=== PATIENT | female | born 1975 | race Two or more races ===

== ENCOUNTER 2022-03-21 23:19 | Observation (INO) ==
[2022-03-21] MEDS ORDERED: MORPHINE 2 MG/1 ML SYRINGE IV STA (23:56)
[2022-03-21] MEDS ORDERED: SODIUM CHLORIDE 0.9% 500 ML IV STA (23:56)
[2022-03-21] MEDS ORDERED: NITROGLYCERIN 2% OINT 1 INCH/GM PACK TOP STA (23:56)
[2022-03-21] MEDS ORDERED: ONDANSETRON 4 MG/2 ML VIAL IV STA (23:56)
[2022-03-22 00:10] LABS: Alanine Aminotransferase 11 U/L (13-56); Albumin 3.3 G/DL (3.4-5.0); Alkaline Phosphatase 97 U/L (45-117); Aspartate Amino Transferase 17 U/L (0-37); Bilirubin,Total < 0.39 MG/DL (0.20-1.00); Blood Urea Nitrogen 14 MG/DL (7-18); Carbon Dioxide 26 MMOL/L (21-32); Chloride 113 MMOL/L (98-107); Glucose 115 MG/DL (74-106); Osmolality,Calculated 284.1 MOS/KG (273-304); Potassium 3.6 MMOL/L (3.5-5.1); Sodium 142 MMOL/L (136-145); Total Protein 7.3 G/DL (6.4-8.2)
[2022-03-22 00:21] LABS: Basophils # 0.1 10*3/uL (0.0-0.2); Basophils % 0.7 % (0.0-0.8); Eosinophils # 0.4 10*3/uL (0.0-0.87); Hematocrit 33.3 VOL% (35.7-47.0); Hemoglobin 10.8 GM/DL (12.0-16.0); Immature Granulocytes % 0.6 %; Immature Granulocytes Absolute 0.05 #; Lymphocytes # 2.3 10*3/uL (1.4-4.0); Lymphocytes % 27.2 % (21.3-54.2); Mean Corpuscular HGB Conc 32.4 GM/DL (32-36); Mean Corpuscular Volume 85.4 FL (87-102); Mean Platelet Volume 9.4 FL (9.6-12.0); Monocytes # 0.4 10*3/uL (0.11-0.8); Monocytes % 4.7 % (1.7-12.7); Neutrophils % 61.8 % (38.7-73.9); Platelet Count 274 T/CUMM (130-400); Red Cell Distribution Width 13.7 % (9.3-17.3); White Blood Count 8.3 T/CUMM (4-12)
[2022-03-22] MEDS ORDERED: METHOCARBAMOL 1,000 MG/10 ML VIAL IV STA ×2 (00:25→02:25)
[2022-03-22] MEDS ORDERED: oxyCODONE/ACETAMINOPHEN 5-325 MG TABLET PO PRN (04:58)
[2022-03-22] MEDS ORDERED: ACETAMINOPHEN 325 MG TABLET PO PRN (04:58)
[2022-03-22] MEDS ORDERED: MORPHINE 2 MG/1 ML SYRINGE IV PRN (04:58)
[2022-03-22] MEDS ORDERED: ONDANSETRON 4 MG/2 ML VIAL IV PRN (04:58)
[2022-03-22] MEDS: LEVOTHYROXINE 50 MCG TABLET PO SCH (06:01)
[2022-03-22] MEDS: SODIUM CHLORIDE 0.9% 1,000 ML IV SCH ×2 (06:01→19:43)
[2022-03-22] MEDS: ENOXAPARIN 80 MG/0.8 ML SYRINGE SUBCUT SCH ×2 (06:02→18:53)
[2022-03-22] MEDS ORDERED: NON-FORMULARY MEDICATION (Omeprazole 20 mg Capsule,Delayed Release(Dr/Ec)) PO SCH (09:00)
[2022-03-22] MEDS: ATORVASTATIN 20 MG TABLET PO SCH (12:09)
[2022-03-22] MEDS: DOCUSATE SODIUM 100 MG CAPSULE PO SCH ×2 (12:09→20:59)
[2022-03-22] MEDS: NITROFURANTOIN MACRO/MONO 100 MG CAPSULE PO SCH ×2 (12:09→20:58)
[2022-03-22] MEDS: MELOXICAM 7.5 MG TABLET PO SCH (12:10)
[2022-03-22] MEDS: PANTOPRAZOLE 40 MG TABLET PO SCH (12:10)
[2022-03-22] MEDS ORDERED: HEPARIN/NACL 0.9% 2 UNITS/ML 3,000 UNIT/1,500 ML BAG IV ONE (12:11)
[2022-03-22] MEDS ORDERED: MIDAZOLAM 2 MG/2 ML VIAL ONE ×2 (12:26→12:54)
[2022-03-22] MEDS ORDERED: NITROGLYCERIN DRIP 50 MG/250 ML BOTTLE IV ONE (12:27)
[2022-03-22] MEDS ORDERED: VERAPAMIL 5 MG/2 ML VIAL ONE (12:27)
[2022-03-22] MEDS ORDERED: fentaNYL 100 MCG/2 ML VIAL ONE (12:27)
[2022-03-22] MEDS ORDERED: HEPARIN 5,000 UNIT/1 ML VIAL ONE (12:37)
[2022-03-22] MEDS ORDERED: hydrALAZINE 20 MG/1 ML VIAL IV PRN (12:48)
[2022-03-22] MEDS ORDERED: ONDANSETRON 4 MG/2 ML VIAL ONE (12:54)
[2022-03-23] MEDS: LEVOTHYROXINE 50 MCG TABLET PO SCH (05:03)
[2022-03-23 05:09] LABS: Basophils % 0.5 % (0.0-0.8); Eosinophils # 0.3 10*3/uL (0.0-0.87); Eosinophils % 4.3 % (0.00-10.9); Hematocrit 31.6 VOL% (35.7-47.0); Hemoglobin 10.1 GM/DL (12.0-16.0); Immature Granulocytes % 0.5 %; Immature Granulocytes Absolute 0.04 #; Lymphocytes # 1.6 10*3/uL (1.4-4.0); Lymphocytes % 21.3 % (21.3-54.2); Mean Corpuscular Volume 86.1 FL (87-102); Monocytes # 0.4 10*3/uL (0.11-0.8); Monocytes % 5.2 % (1.7-12.7); Neutrophils % 68.2 % (38.7-73.9); Platelet Count 235 T/CUMM (130-400); Red Blood Count 3.67 MC/CUMM (3.8-5.5); Red Cell Distribution Width 13.8 % (9.3-17.3); White Blood Count 7.4 T/CUMM (4-12)
[2022-03-23 05:26] LABS: Alanine Aminotransferase 11 U/L (13-56); Albumin 2.6 G/DL (3.4-5.0); Alkaline Phosphatase 69 U/L (45-117); Aspartate Amino Transferase 13 U/L (0-37); Bilirubin,Total < 0.39 MG/DL (0.20-1.00); Blood Urea Nitrogen 8 MG/DL (7-18); Calcium 7.9 MG/DL (8.5-10.1); Carbon Dioxide 24 MMOL/L (21-32); Chloride 114 MMOL/L (98-107); Cholesterol 137 MG/DL (50-200); Glucose 90 MG/DL (74-106); HDL Cholesterol 50 MG/DL (40-60); Potassium 3.5 MMOL/L (3.5-5.1); Risk Ratio 2.74; Sodium 143 MMOL/L (136-145); Total Protein 6.2 G/DL (6.4-8.2); Triglycerides 129 MG/DL (2-150); VLDL Cholesterol 25.8 MG/DL
[2022-03-23 05:37] LABS: Thyroid Stimulating Hormone 2.05 uIU/ml (0.358-3.74)
[2022-03-23 09:11] VITALS: BP 123/71
[2022-03-23] MEDS: SODIUM CHLORIDE 0.9% 1,000 ML IV SCH (09:40)
[2022-03-23] MEDS: DOCUSATE SODIUM 100 MG CAPSULE PO SCH (09:40)
[2022-03-23] MEDS: PANTOPRAZOLE 40 MG TABLET PO SCH (09:41)
[2022-03-23] MEDS: NITROFURANTOIN MACRO/MONO 100 MG CAPSULE PO SCH (09:41)
[2022-03-23] MEDS: ATORVASTATIN 20 MG TABLET PO SCH (09:41)
[2022-03-23] MEDS: MELOXICAM 7.5 MG TABLET PO SCH (10:18)
== END 2022-03-23 11:05 | disposition home or self-care (01) ==
LOC: N.ED 23:19 → N.EDINP 23:19 → N.TELES 03-22 04:51
PROVIDERS: ADMIT Family Medicine; ATTEND Family Medicine
PROC: CLCCHCL (ICD-10-PCS; 2022-03-22 12:45)